=== PATIENT | male | born 1995 | race Caucasian/White ===

== ENCOUNTER 2022-07-28 05:07 | Emergency (ER) | payer MEDICAID ==
[~2022-07-28] VITALS: Ht 182.9 cm; Wt 84.1 kg
[~2022-07-28 05:07] MED LIST: ALBU6.7H14 INH; BENZ-16 PO; GUAI600T45 PO; PANT-47 PO
[2022-07-28 05:36] VITALS: BP 121/66
[2022-07-28] MEDS ORDERED: LIDOcaine 1% 30ml preserv. free vial SQ STA (07:56)
[2022-07-28] MEDS ORDERED: LIDOcaine/epinephrine/tetracaine TOPICAL sol 3 ML syringe TOP ONE (08:00)
--- NOTE | 2022-07-28 08:22 | NUR ---
Lidocaine administered by provider.
[2022-07-28] MEDS ORDERED: SULF1TAB49 PO (09:22)
[2022-07-28] MEDS ORDERED: bacitracin 15gm ointment TP ONE (09:30)
== END 2022-07-28 09:41 | disposition home or self-care (01) ==
LOC: ER 05:09
DX: L02.01 Cutaneous abscess of face (principal); K21.9 Gastro-esophageal reflux disease without esophagitis; Z79.899 Other long term (current) drug therapy
CPT/HCPCS: 10060; 99284; J3490; A6258; A6449